=== PATIENT | female | born 1965 | race Caucasian/White ===

== ENCOUNTER → 2016-12-06 | Outpatient (CLI) | payer SELFPAY ==
--- NOTE | 2016-12-07 08:38 | XR ---
Left foot HISTORY: Trauma and pain 2 views of the left foot Bone mineralization, joint spaces and alignment are maintained. There is a plantar calcaneal spur. IMPRESSION: No fracture or dislocation.
== END | disposition home or self-care (01) ==
LOC: RADXRYALE 10:26
PROVIDERS: ATTEND Internal Medicine
DX: M79.672 Pain in left foot (principal)